=== PATIENT | male | born 1945 | race Caucasian/White ===

== ENCOUNTER 2020-12-03 10:15 | Outpatient (CLI) | payer MEDICARE ==
[~2020-12-03] VITALS: Ht 182.9 cm; Wt 83.9 kg
[2020-12-03] MEDS ORDERED: ASPI-543 PO (15:42)
[2020-12-03] MEDS ORDERED: APIX2.5T PO (15:42)
[2020-12-03] MEDS ORDERED: SIMV10TA2 PO (15:42)
[2020-12-03] MEDS ORDERED: METF-370 PO (15:42)
[2020-12-03] MEDS ORDERED: CARV3.1240 PO (15:42)
[2020-12-03] MEDS ORDERED: KETO2CRE4 EX (15:42)
== END 2020-12-03 15:09 | disposition home or self-care (01) ==
LOC: LAB 10:15 → EDSTATUS 12-08 16:07
PROVIDERS: ATTEND Internal Medicine Cardiovascular Disease
DX: Z01.818 Encounter for other preprocedural examination (principal); Z20.822 Contact with and (suspected) exposure to COVID-19; Z98.890 Other specified postprocedural states; Z79.899 Other long term (current) drug therapy; Z88.8 Allergy status to other drugs, medicaments and biological substances